=== PATIENT | male | born 1980 | race African-American/Black ===

== ENCOUNTER → 2019-06-29 | Outpatient (CLI) | payer OTHER ==
[~2019-06-29] MED LIST: LIDOCAINE/PRILOCAINE 2.5-2.5% KIT ONE; MUPIROCIN 2% OINT 22 GM TUBE ONE
[2019-06-29 13:09] LABS: BASOPHILS % 0.7 % (0.0-1.0); EOSINOPHILS # (AUTO) 0.1 (0.0-0.4); EOSINOPHILS % 1.8 % (0.0-6.0); HEMATOCRIT 45.9 % (38.2-49.6); HEMOGLOBIN 14.6 g/dL (14.0-18.0); LYMPHOCYTES # (AUTO) 2.8 (1.0-3.2); LYMPHOCYTES % 45.6 % (18.0-39.1); MEAN CORPUSCULAR HEMOGLOBIN 26.9 pg (28-32); MEAN CORPUSCULAR HGB CONC 31.8 g/dL (31-35); MEAN CORPUSCULAR VOLUME 84.5 fL (81-99); MONOCYTES # (AUTO) 0.4 (0.2-0.8); MONOCYTES % 6.2 % (4.4-11.3); NEUTROPHILS # (AUTO) 2.8 (2.1-6.9); PLATELET COUNT 276 x10e3/uL (140-360); RED BLOOD COUNT 5.43 x10e6/uL (4.3-5.7); RED CELL DISTRIBUTION WIDTH 13.2 % (11.7-14.4)
--- NOTE | 2019-06-29 13:13 | Diagnostic Imaging Report ---
Exam: Left foot 3 views Clinical History: Toe infection Findings: There is no evidence of acute fracture or malalignment. The articular joints are well-preserved. The soft tissue is unremarkable. Impression: No radiographic evidence of acute osseous injury. Signed by: Dr. Jacob Isaacs MD on 06/29/2019 1:10 PM
== END ==
LOC: WCC 11:51
PROVIDERS: ATTEND Family Medicine Adult Medicine
DX: E11.621 Type 2 diabetes mellitus with foot ulcer (principal); E11.69 Type 2 diabetes mellitus with other specified complication; E11.65 Type 2 diabetes mellitus with hyperglycemia; L97.528 Non-pressure chronic ulcer of other part of left foot with other specified severity; L97.529 Non-pressure chronic ulcer of other part of left foot with unspecified severity; I10 Essential (primary) hypertension; G99.0 Autonomic neuropathy in diseases classified elsewhere
CPT/HCPCS: 36415; 83036; 84134; 85025; 85651; 86140; 87071; 87075; 87205

== ENCOUNTER → 2019-07-06 | Outpatient (CLI) | payer OTHER | LOC: WCC 11:49 | PROVIDERS: ATTEND Family Medicine Adult Medicine | DX: E11.621 Type 2 diabetes mellitus with foot ulcer (principal); E11.65 Type 2 diabetes mellitus with hyperglycemia; E11.69 Type 2 diabetes mellitus with other specified complication; L97.528 Non-pressure chronic ulcer of other part of left foot with other specified severity; L97.529 Non-pressure chronic ulcer of other part of left foot with unspecified severity; I10 Essential (primary) hypertension; G99.0 Autonomic neuropathy in diseases classified elsewhere ==

== ENCOUNTER → 2019-07-16 | Outpatient (CLI) | payer OTHER ==
[~2019-07-16] MED LIST changes: +AMMONIUM LACTATE 12% LOTION 225GM BTL ONE; -LIDOCAINE/PRILOCAINE 2.5-2.5% KIT ONE; -MUPIROCIN 2% OINT 22 GM TUBE ONE
== END ==
LOC: WCC 12:55
PROVIDERS: ATTEND Family Medicine Adult Medicine
DX: E11.621 Type 2 diabetes mellitus with foot ulcer (principal); E11.65 Type 2 diabetes mellitus with hyperglycemia; E11.69 Type 2 diabetes mellitus with other specified complication; L97.529 Non-pressure chronic ulcer of other part of left foot with unspecified severity; L97.528 Non-pressure chronic ulcer of other part of left foot with other specified severity; G99.0 Autonomic neuropathy in diseases classified elsewhere; I10 Essential (primary) hypertension

== ENCOUNTER 2019-07-20 12:24 | Outpatient (RCR) | payer OTHER | END 2019-07-22 | LOC: WCC 12:24 | PROVIDERS: ATTEND Family Medicine Adult Medicine | DX: E11.621 Type 2 diabetes mellitus with foot ulcer (principal); E11.69 Type 2 diabetes mellitus with other specified complication; E11.65 Type 2 diabetes mellitus with hyperglycemia; L97.528 Non-pressure chronic ulcer of other part of left foot with other specified severity; L97.529 Non-pressure chronic ulcer of other part of left foot with unspecified severity; G99.0 Autonomic neuropathy in diseases classified elsewhere; I10 Essential (primary) hypertension | CPT/HCPCS: 15275; Q4186 ==

== ENCOUNTER → 2019-07-23 | Outpatient (CLI) | payer OTHER | LOC: WCC 14:36 | PROVIDERS: ATTEND Family Medicine Adult Medicine | DX: E11.621 Type 2 diabetes mellitus with foot ulcer (principal); E11.65 Type 2 diabetes mellitus with hyperglycemia; E11.69 Type 2 diabetes mellitus with other specified complication; L97.528 Non-pressure chronic ulcer of other part of left foot with other specified severity; L97.529 Non-pressure chronic ulcer of other part of left foot with unspecified severity; I10 Essential (primary) hypertension; G99.0 Autonomic neuropathy in diseases classified elsewhere | CPT/HCPCS: 36415; 82948 ==

== ENCOUNTER → 2019-07-27 | Outpatient (CLI) | payer OTHER | LOC: WCC 15:17 | PROVIDERS: ATTEND Family Medicine Adult Medicine | DX: E11.621 Type 2 diabetes mellitus with foot ulcer (principal); E11.69 Type 2 diabetes mellitus with other specified complication; E11.65 Type 2 diabetes mellitus with hyperglycemia; L97.528 Non-pressure chronic ulcer of other part of left foot with other specified severity; L97.529 Non-pressure chronic ulcer of other part of left foot with unspecified severity; I10 Essential (primary) hypertension; G99.0 Autonomic neuropathy in diseases classified elsewhere | CPT/HCPCS: 15275; Q4186 ==

== ENCOUNTER → 2019-07-30 | Outpatient (CLI) | payer OTHER | LOC: WCC 11:25 | PROVIDERS: ATTEND Family Medicine Adult Medicine | DX: E11.621 Type 2 diabetes mellitus with foot ulcer (principal); E11.69 Type 2 diabetes mellitus with other specified complication; E11.65 Type 2 diabetes mellitus with hyperglycemia; L97.529 Non-pressure chronic ulcer of other part of left foot with unspecified severity; I10 Essential (primary) hypertension; G99.0 Autonomic neuropathy in diseases classified elsewhere ==

== ENCOUNTER → 2019-08-03 | Outpatient (CLI) | payer OTHER | LOC: WCC 16:19 | PROVIDERS: ATTEND Family Medicine Adult Medicine | DX: E11.621 Type 2 diabetes mellitus with foot ulcer (principal); E11.69 Type 2 diabetes mellitus with other specified complication; E11.65 Type 2 diabetes mellitus with hyperglycemia; L97.528 Non-pressure chronic ulcer of other part of left foot with other specified severity; L97.529 Non-pressure chronic ulcer of other part of left foot with unspecified severity; I10 Essential (primary) hypertension; G99.0 Autonomic neuropathy in diseases classified elsewhere | CPT/HCPCS: 15275; Q4186 ==

== ENCOUNTER → 2019-08-10 | Outpatient (CLI) | payer OTHER | LOC: WCC 15:16 | PROVIDERS: ATTEND Family Medicine Adult Medicine | DX: E11.69 Type 2 diabetes mellitus with other specified complication (principal); E11.621 Type 2 diabetes mellitus with foot ulcer; E11.65 Type 2 diabetes mellitus with hyperglycemia; L97.528 Non-pressure chronic ulcer of other part of left foot with other specified severity; L97.529 Non-pressure chronic ulcer of other part of left foot with unspecified severity; G99.0 Autonomic neuropathy in diseases classified elsewhere; I10 Essential (primary) hypertension | CPT/HCPCS: 15275; Q4186 ==

== ENCOUNTER → 2019-08-17 | Outpatient (CLI) | payer OTHER | LOC: WCC 09:55 | PROVIDERS: ATTEND Family Medicine Adult Medicine | DX: E11.621 Type 2 diabetes mellitus with foot ulcer (principal); E11.69 Type 2 diabetes mellitus with other specified complication; E11.65 Type 2 diabetes mellitus with hyperglycemia; L97.528 Non-pressure chronic ulcer of other part of left foot with other specified severity; L97.529 Non-pressure chronic ulcer of other part of left foot with unspecified severity; I10 Essential (primary) hypertension; G99.0 Autonomic neuropathy in diseases classified elsewhere ==